=== PATIENT | male | born 1985 | race Caucasian/White ===

== ENCOUNTER 2017-04-26 20:22 | Emergency (ER) | payer BC ==
[2017-04-26] MEDS ORDERED: ASPIRIN 81 MG (BABY) CHEWABLE TABLET PO ONE (20:39)
[2017-04-26] MEDS ORDERED: Sodium Chloride 0.9% 1,000 ML PRIMARY IV ONE (20:39)
[2017-04-26] MEDS ORDERED: NORMAL SALINE 10 ML SYRINGE FLUSH IVP PRN (20:39)
--- NOTE | 2017-04-26 20:41 | EKG ---
[address] [id number] Measurements Intervals [place] Rate: 73 P: -36 HI: 173 QRS: 65 QRSD: 124 T: 44 QT: 362 QTc: 388 Interpretive Statements SINUS RHYTHM WITH SINUS ARRHYTHMIA INTRAVENTRICULAR CONDUCTION DELAY No previous ECG available for comparison Electronically Signed On 04-27-17 15:50:00 MDT by Arvin Caldwell [email or web address]
[2017-04-26 20:46] VITALS: RESP 20; TEMP 98.5
[2017-04-26] MEDS: NITROGLYCERIN 0.4 MG SL TAB (BOTTLE OF 3) SL PRN ×2 (20:48→21:00)
[2017-04-26 20:49] LABS: HEMATOCRIT 47.8 % (42.0-52.0); HEMOGLOBIN 15.9 g/dL (14.0-18.0); MEAN CORPUSCULAR HEMOGLOBIN 28.1 PG (27-31); MEAN CORPUSCULAR HGB CONC 33.3 g/dL (33-37); MEAN CORPUSCULAR VOLUME 84.5 FL (80-90); RED BLOOD COUNT 5.66 10^6/uL (4.70-6.10)
[2017-04-26 20:50] LABS: BAND NEUTROPHILS % 0 % (0-10); BASOPHILS % (MANUAL) 0 % (0-1); EOSINOPHILS % (MANUAL) 0 % (0-8); LYMPHOCYTES % (MANUAL) 48 % (10-50); MONOCYTES % (MANUAL) 5 % (0-12); NEUTROPHILS % (MANUAL) 47 % (50-80); PLATELET MORPHOLOGY COMMENT NORMAL MORPHOLOGY (NORM); RBC MORPHOLOGY COMMENT NORMAL MORPHOLOGY (NORM); WBC MORPHOLOGY COMMENT SEE COMMENTS (NORM)
[2017-04-26 20:51] LABS: BLOOD UREA NITROGEN 14 mg/dL (7-22); BUN/CREATININE RATIO 15.55 (6-20); CALCIUM 9.6 mg/dL (8.7-10.7); EST GLOMERULAR FILTRATION > 60 (>60 ml/min/1.73m(2)); SERUM ALBUMIN 4.9 g/dL (3.5-4.8)
[2017-04-26 20:53] LABS: CREATINE KINASE MB 0.28 NG/ML (0.00-5.00); TROPONIN I < 0.012 ng/mL (< 0.040)
--- NOTE | 2017-04-27 02:01 | PDOC ---
Chest Pain HPI - General Chief Complaint: Chest Pain Stated Complaint: LEFT SIDED CHEST PAIN Date Seen by Provider: 04/26/17 Time Seen by Provider: 20:25 Source: Patient Exam Limitations: POSITIVE: No limitations Treatment Prior to Arrival: REPORTS: None Nurse's Notes Reviewed & Considered: Yes - History of Present Illness Initial Comments: The patient is a 32-year-old male. He states that for the past 25 hours, approximately, he has had "sharp, throbbing "chest pain over the left this parasternal area. He rates the intensity of the discomfort as a 3 or 4 out of a scale of 10. Pain has been constant, but does not disturb his sleep. No radiation. No dyspnea or diaphoresis. No known history of cardiac problems. He states he does have a history of hypertension. Body Location Affected: REPORTS: Chest Timing: REPORTS: Abrupt, Constant Duration: >24 hours (Approximately 25 hours) Severity: Moderate Persistent/Worse since (date): 04/25/17 Persistent/Worse since (time): 19:00 Context: REPORTS: Rest Quality: REPORTS: Sharpness, Throbbing Radiation: REPORTS: None Associated Symptoms: DENIES: Nausea, Vomiting, Diaphoresis, Shortness of Breath , Hurts to Breathe, Palpitations, Productive Cough (blood), Productive Cough ( sputum), Weakness, Dizziness Modifying Factors: improves with: Pressing On Area Similar Symptoms Previously: No Recently seen/treated/hospitalized: No Any Prior Injuries Related to Current Complaint?: No - Patient Home Medications Home Medications: Home Medications NK [No Home Medications Reported] 04/26/17 - Patient Allergies Allergies/Adverse Reactions: Allergies Allergy/AdvReac Type Severity Reaction Status Date / Time Penicillins Allergy Intermediate abdominal Verified 04/26/17 20:31 pain bee pollen Allergy Unknown HIVES Verified 04/26/17 20:31 Past Medical History - heen HEENT History: Denies History Cardiovascular History: Hypertension, Other (please comment) Additional Cardiovasular History: 2014 HAD CHEST PAIN AND WAS WORKED UP. Respiratory History: Sleep Apnea, Home CPAP Use Gastrointestinal History: Denies History Genitourinary History: Denies History Endocrine History: Denies History Musculoskeletal History: Denies History Neurological History: Denies History Blood Disorders: Denies History Psychiatric History: Denies History Male Reproductive History: Denies History Cancer History: Denies History In Past Year Been Physically Harmed or Verbally Threatened: No History of MDRO: No Tobacco Use: Never Smoker Alcohol Use: Rarely Substance Use Type: None Previous Surgical History: Yes Type / Date of Surgery: TONSILS Significant Family History: Heart disease Past Medical History Reviewed: Reviewed - No Changes ROS - Limitations ROS Limitations: No Limitations Constitution: REPORTS: Denies Symptoms Cardiovascular: REPORTS: Chest Pain Respiratory: REPORTS: Denies Resp Symptoms Neurological: REPORTS: Denies Neuro Symptoms Gastrointestinal: REPORTS: Denies GI Symptoms Endocrine: REPORTS: Denies Symptoms Musculoskeletal: REPORTS: Other (Discomfort on palpation left parasternal area) Genitourinary: REPORTS: Denies Symptoms Eyes: REPORTS: Denies Symptoms ENT: REPORTS: Denies Symptoms Skin: REPORTS: Denies Skin Symptoms Lympathic: REPORTS: Denies Lympathic Symptoms Immunologic: POSITIVE: Denies Symptoms Psychiatric: POSITIVE: Denies Psych Symptoms Chest Pain PE - General Appearance General Appearance: REPORTS: Alert, Cooperative, No Acute Distress, No Evidence of Trauma - HEENT HEENT: POSITIVE: Head Inspection Nml, Eyes Inspection Nml, Ears Inspection Nml, Nose Inspection Nml, Oral/Dental Inspect. Nml, Pharynx Inspect. Nml, PERRL, EOMI - Neck Neck: REPORTS: Normal Inspection, No Carotid Bruit - Respiratory Respiratory: REPORTS: Breath Sounds Normal, Trunk Pain (Left parasternal area), See Diagram (Discomfort on palpation). DENIES: No Respiratory Distress, Chest Non-Tender, Wheezes, Rales, Rhonchi, Respiratory Distress, Distinct Pain on Movement, Right Arm Pain, Left Arm Pain, Splinting, Decreased Air Movement - Cardiovascular Cardiovascular: REPORTS: Regular Rate and Rhythm, Heart Sounds Normal, Equal Pulses, Strong Pulses, No Murmur, No Gallop, No Friction Rub, No JVD Peripheral Pulses: Radial (R): 2+, Radial (L): 2+ - Abdomen Abdomen: Soft: (All Quadrants), Normal Bowel Sounds: (All Quadrants), Denies Tenderness: (All Quadrants), No Splenomegaly: (All Quadrants), No Hepatomegaly: (All Quadrants), No Guarding: (All Quadrants), No Rebound: (All Quadrants), No Palpable Pulse: (All Quadrants), No Palpabale Mass: (All Quadrants), No Distention: (All Quadrants), No Rigidity: (All Quadrants) - Skin Skin: REPORTS: Intact, Normal For Race, Warm, Dry, No Rash - Extremities Extremity: Non-Tender: (All Extremities), Normal ROM: (All Extremities), Normal Inspection: (All Extremities) - Neurological / Psychological Neurological: POSITIVE: Oriented X3, 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, Motor Normal, Sensation Normal, 5, 6 Images - Complete Complete: 1 - Tenderness on palpation Chest Pain Progress - Results Reviewed by me Xrays/CTs/US Reviewed by me: Yes Discussed with Radiologist: No Radiology Findings: Portable chest x-ray normal Lab Results Reviewed: Yes Lab Results:: Laboratory Results 04/26/17 Range/Units 20:25 WBC 11.58 H (4.8-10.8) 10^3/uL RBC 5.66 (4.70-6.10) 10^6/uL Hgb 15.9 (14.0-18.0) g/dL Hct 47.8 (42.0-52.0) % MCV 84.5 (80-90) FL MCH 28.1 (27-31) PG MCHC 33.3 (33-37) g/dL RDW Std Deviation 44.0 (39-50) fL RDW Coeff of [place] 14.5 (11.5-14.5) % Plt Count 374 H (140-350) 10*3/uL MPV 10.0 (7.4-12.2) FL Neutrophils % (Manual) 47 L (50-80) % Band Neutrophils % 0 (0-10) % Lymphocytes % (Manual) 48 (10-50) % Monocytes % (Manual) 5 (0-12) % Eosinophils % (Manual) 0 (0-8) % Basophils % (Manual) 0 (0-1) % Metamyelocytes % Not Reportable Myelocytes % Not Reportable Promyelocytes % Not Reportable Blast Cells Not Reportable WBC Morphology Comment See comments (NORM) Plt Morphology Comment Normal morphology (NORM) RBC Morph Comment Normal morphology (NORM) D-Dimer 0.41 (0.00-0.59) mg/L Sodium 143 (135-145) meq/L Potassium 3.7 L (3.8-5.2) meq/L Chloride 105 (98-112) meq/L Carbon Dioxide 25 (23-33) meq/L Anion Gap 13 (5-20) BUN 14 (7-22) mg/dL Creatinine 0.9 (0.70-1.50) mg/dL Estimated GFR > 60 (>60 ml/min/1.73m(2)) BUN/Creatinine Ratio 15.55 (6-20) Glucose 96 (78-110) mg/dL Calculated Osmolality 296.0 H (267-292) mOsm/kg Calcium 9.6 (8.7-10.7) mg/dL Total Bilirubin 0.9 (0.3-1.2) mg/dL AST 35 (21-57) IU/L ALT 40 (21-72) IU/L Alkaline Phosphatase 99 (38-126) IU/L CK-MB (CK-2) 0.28 (0.00-5.00) NG/ML Troponin I < 0.012 (< 0.040) ng/mL Total Protein 8.8 H (6.1-8.0) g/dL Albumin 4.9 H (3.5-4.8) g/dL Globulin 3.9 (2.50-4.10) g/dL Albumin/Globulin Ratio 1.20 L (1.3-2.0) mg/g EKG Interpreted/Reviewed By Me:: Yes (normal) EKG Interpretation:: POSITIVE: Normal Sinus Rhythm, Normal Rate, Normal Intervals, Normal [place], Normal QRS, Normal ST/T - Patient's Progress Pain Medication Addressed: POSITIVE: Yes (Recommended Advil or Aleve) School/Work Release Addressed: POSITIVE: Not Applicable Re-Examine Time: 21:21 Status: POSITIVE: Unchanged, Re-Examined Quality Measure Initiative: CP/AMI: POSITIVE: EKG, ASA - Consult Counseled: POSITIVE: Patient, RE: Lab Results, RE: Radiology Results, RE: DX, RE : Need for F/U Patient Care Time - Estimated PCT Patient Care Time (In Minutes): 48 Vital Signs - Recent Vital Signs Vital Signs: Vital Signs (Last 8 hours) Temp Pulse Pulse Pulse Resp BP BP 04/26/17 21:33 78 139/97 04/26/17 20:35 73 04/26/17 20:22 98.5 F 74 74 20 186/111 BP Pulse Ox 04/26/17 21:33 04/26/17 20:35 04/26/17 20:22 174/118 97 - VS Reviewed Vital Signs Reviewed: Yes Discharge Clinical Impression: Atypical chest pain Discharge Disposition: Discharged to Home Condition: Good Patient Instructions Given at Discharge: Chest Pain (ED) Additional Instructions: I believe it is very unlikely that your chest discomfort is being caused by any heart or pulmonary problems. Your electrocardiogram is normal. Your blood tests are normal and your chest x-ray is normal. Cardiac enzymes are normal and screening test for blood clots to the lung is negative. I believe most likely your discomfort is originating from your chest wall. Please apply warm moist compresses to areas of discomfort. Tylenol or Advil for discomfort. Return anytime if condition worsens in anyway whatsoever. Follow-up with your primary care provider. Follow Up With: ELY MARLEY [Primary Care Provider] - (Instructions as above. Follow-up with your primary care provider. Return here anytime if condition worsens in any way.)
--- NOTE | 2017-04-27 12:39 | DI ---
[facility] CHEST X-RAY, 04/26/2017 8:39 PM : Clinical History: Chest pain. Previous Exam: None at this facility. There is no acute soft tissue or bony abnormality. Heart size is normal. Lungs are clear. Mediastinal structures are normal. There are no pulmonary nodules. Reading: Normal chest x-ray.
== END 2017-04-26 21:28 | disposition home or self-care (01) ==
LOC: ER 20:22
DX: R07.89 Other chest pain (principal); I10 Essential (primary) hypertension
CPT/HCPCS: 71010; 80053; 82553; 84484; 85007; 85379; 93005; 93010; 99283; J7030